=== PATIENT | female | born 1955 | race American Indian/Alaskan Native ===

== ENCOUNTER 2021-01-30 14:42 | Emergency (ER) | payer OTHER, SELFPAY ==
--- NOTE | ~2021-01-30 | XR_ITS ---
EXAMINATION: RIGHT KNEE AND RIGHT ANKLE. CLINICAL INFORMATION: Status post fall. Pain. COMPARISON: None TECHNIQUE: Right knee 4 views. Right ankle 3 views. FINDINGS: Right knee: There is loss of tricompartment joint space with periarticular spurring there is a small suprapatellar joint effusion. No loose bodies seen. No bony erosive changes. The soft tissues are normal. Right ankle: There is bimalleolar soft tissue swelling. There is a nondisplaced distal fibular soft tissue swelling. There is mild osteopenia. The ankle mortise and subtalar joints are normal. There is a small calcaneal heel enthesophyte. XR/XR ankle RT min 3V IMPRESSION: Small calcaneal heel enthesophyte with bimalleolar soft tissue swelling. No visible acute fracture or dislocation. There is mild suprapatellar joint effusion with degenerative changes in the tricompartments of right knee.
--- NOTE | ~2021-01-30 | XR_ITS ---
EXAMINATION: RIGHT KNEE AND RIGHT ANKLE. CLINICAL INFORMATION: Status post fall. Pain. COMPARISON: None TECHNIQUE: Right knee 4 views. Right ankle 3 views. FINDINGS: Right knee: There is loss of tricompartment joint space with periarticular spurring there is a small suprapatellar joint effusion. No loose bodies seen. No bony erosive changes. The soft tissues are normal. Right ankle: There is bimalleolar soft tissue swelling. There is a nondisplaced distal fibular soft tissue swelling. There is mild osteopenia. The ankle mortise and subtalar joints are normal. There is a small calcaneal heel enthesophyte. XR/XR knee RT 3V IMPRESSION: Small calcaneal heel enthesophyte with bimalleolar soft tissue swelling. No visible acute fracture or dislocation. There is mild suprapatellar joint effusion with degenerative changes in the tricompartments of right knee.
[2021-01-30 14:52] VITALS: BP 155/80; BP 160/82; PULSE 78; PULSE 82; RESP 18; TEMP 36.6; O2SAT 98; BMI 45.1
--- NOTE | 2021-01-30 14:58 | ED_ITS ---
HPI - Fall General Chief Complaint: Fall Stated Complaint: R ANKLE PAIN S/P FALL FROM TOW TRUCK Time Seen by Provider: 01/30/21 14:58 Source: EMS Mode of arrival: EMS Limitations: no limitations History of Present Illness HPI Narrative: 65-year-old female with below noted past medical history presenting complaint of right ankle pain and pain to the right knee after she was trying get into a tow truck and lost her footing and fell on to the ankle region. States she always has knee pain and this made it worse. She denies any other injury to the torso or hip or neck or head. MD complaint: fall Onset (ago): minute(s) Fall from: standing Fall witnessed: yes, by bystander Place fall occurred: street Loss of consciousness: none Symptoms prior to fall: none Context: tripped/slipped Severity scale (1-10): 8 Quality: aching Associated symptoms (after fall): denies Related Data Allergies Allergy/AdvReac Type Severity Reaction Status Date / Time Iodinated Contrast Media Allergy Severe ANAPHYLAXIS Unverified 01/22/20 19:30 [IV CONTRAST] iodine [IODINE] Allergy Severe ANAPHYLAXIS Unverified 01/22/20 19:30 shellfish derived Allergy Severe ANAPHYLAXIS Unverified 01/22/20 19:30 [SHELLFISH DERIVED] contrast dye Allergy Unknown Uncoded 10/08/17 00:00 iodine Allergy Unknown Uncoded 10/08/17 00:00 shell fish Allergy Unknown Uncoded 10/08/17 00:00 Review of Systems Review of Systems: Constitutional: No Weight loss, No Fever, No Chills, No Night Sweats, No Fatigue, No Malaise ENT/Mouth: No Hearing loss, No Ear Pain, No Nasal Congestion, No Sinus Pain, No Hoarseness, No sore throat, No Rhinorrhea, No Swallowing Difficulty Eyes: No Eye Pain, No Swelling, No Redness, No Foreign Body, No Discharge, No Vision Changes Cardiovascular: No Chest Pain, No SOB, No Dyspnea on Exertion, No Orthopnea, No Edema, No Palpitations Respiratory: No Cough, No Sputum, No Wheezing, No Smoke Exposure, No Dyspnea Gastrointestinal: No Nausea, No Vomiting, No Diarrhea, No Constipation, No abdominal Pain, No Hematochezia, No Melena Genitourinary: No Dysuria, No Urinary Frequency, No Hematuria, No Urinary Incontinence, No Urgency, No Flank Pain, No Urinary Flow Changes, No Hesitancy Musculoskeletal: No joint pain, No Myalgias, No Joint Swelling, as noted per HPI Skin: No Skin Lesions, No rash Neuro: No Weakness, No Numbness, No Paresthesias, No Loss of Consciousness, No Dizziness, No Headache Psych: No Social Issues Heme/Lymph: No Bruising, No Bleeding,No Lymphadenopathy Endocrine: No Polyuria, No Polydipsia, No Temperature Intolerance PMFSH Social History Social History Advance Directives: No Advance Directives Information Provided: Yes Physical Exam Vital Signs: Vital Signs: Last Vital Signs Temp 98 F 01/30/21 14:52 Pulse 82 01/30/21 14:52 Resp 18 01/30/21 14:52 BP 155/80 H 01/30/21 14:52 Pulse Ox 98 01/30/21 14:52 Body Mass Index 45.1 Const: General: cooperative and healthy appearing; No acute distress or intoxicated appearing Nutritional Appearance: average body habitus Orientation/consciousness: patient oriented x3 HENMT: Head: Yes normal to inspection Ears: hearing grossly normal bilaterally Eyes: General: appearance normal, both eyes and all related structures Visual Pinedo: normal visual pinedo by confrontation Neck: Neck: Yes normal visual inspection, No positive Brudzinski's sign, No positive Kernig's sign and No tender Thyroid: Thyroid normal Chest: Chest palpation & inspection: normal inspection of the chest Resp: Effort & Inspection: normal respiratory effort Auscultation: clear to auscultation bilaterally Cardio: Jugular venous distension: no JVD Rhythm: regular rhythm Heart sounds: S1 normal heart sound present and S2 normal heart sound present GI: Inspection: Yes normal to inspection Percussion: Yes normal to percussion Auscultation: normal bowel sounds : General: Yes no CVA tenderness Back/Spine/Pelvis: Back: no CVA tenderness Skin: General skin exam: no rashes or lesions noted Neuro: General: patient oriented x3 Extrem: General: Yes normal to inspection Ankle/foot/toe images: 1. Slight swelling, tender to palpation over the lateral aspect of the ankle. Also complains of knee pain exam unremarkable. No obvious deformity. Course Course Course Narrative: Mechanical fall resulting in right ankle/right knee injury x- rays done of the right ankle knee shows arthritic changes otherwise no acute osseous injury. Exam consistent with strain type injury. Patient placed in Sotero wrap of the knee and Aircast for the ankle has cane at baseline. Feels comfortable with this. Otherwise neurovascularly intact. Ambulatory with steady gait. Stable for discharge. MDM - Fall Differential Diagnosis Differential diagnosis: Likely dislocation, fracture and compression fracture; Unlikely syncope, concussion with loss of consciousness or concussion without loss of consciousness Medical Records Attestation: I reviewed the patient's medical records. Lab Data Attestation: I reviewed the patient's lab results. Imaging Data Right ankle/right knee: Radiologist's impression: Georgina Pereira??65??F??1955 ? Allergy/Adv: Iodinated Contrast Media, iodine, shellfish derived, [contrast dye], [iodine], [shell fish] (More??) Close ER Physician Documentation 01/30/21 14:58 Ankle X-Ray 01/30/21 14:59 Knee X-Ray 01/30/21 14:59 Launch?Image [place] [address] XRay Report Signed Patient: Georgina Pereira MR#: [id number] : 1955 Acct:[id number] Age/Sex: 65 / F ADM Date: 01/30/21 Loc: HO.ED Attending Dr: Ordering Physician: Tien Penaloza NP Date of Service: 01/30/21 Procedure(s): XR ankle RT min 3V Accession Number(s): [id number] cc: Tien Penaloza NP~ EXAMINATION: RIGHT KNEE AND RIGHT ANKLE. CLINICAL INFORMATION: Status post fall. Pain.? COMPARISON: None? TECHNIQUE: Right knee 4 views. Right ankle 3 views.? FINDINGS: Right knee: There is loss of tricompartment joint space with periarticular spurring there is a small suprapatellar joint effusion. No loose bodies seen. No bony erosive changes. The soft tissues are normal. Right ankle: There is bimalleolar soft tissue swelling. There is a nondisplaced distal fibular soft tissue swelling. There is mild osteopenia. The ankle mortise and subtalar joints are normal. There is a small calcaneal heel enthesophyte.? XR/XR ankle RT min 3V IMPRESSION: Small calcaneal heel enthesophyte with bimalleolar soft tissue swelling. No visible acute fracture or dislocation. ? There is mild suprapatellar joint effusion with degenerative changes in the tricompartments of right knee. Dictated By: Sergo Cheek MD Signed By: <Electronically signed by Sergo Cheek MD in OV> 01/30/21 1530 DD/ 1459 TD/TT:? V[place] [facility] [place] Discharge Clinical Impression: Ankle sprain, Contusion of knee Patient Disposition: Home, Self-Care Instructions: Ankle Sprain (ED), Ankle Stirrup Splint (ED), Knee Pain (ED) Additional Instructions: X-ray did not show any evidence of acute fracture You suffered a strain of the ankle for this she will need to rest, ice, compress, elevate Use her supportive devices as provided Tylenol [id number] as needed Return if any concerns or worsening symptoms Otherwise follow up with her primary care doctor as discussed Thank you Referrals: Ileana Sr MD [Primary Care Provider] - 1 week
--- NOTE | 2021-01-30 16:15 | PC.NURSE ---
Sotero wrap, and air cast applied. Patient ambulated with cane and able to stand pivot but not able to ambulate far beause of pain. Patient states this is baseline and uses a scooter at home and feels safe going home.
== END 2021-01-30 22:35 | disposition home or self-care (01) ==
PROVIDERS: Emergency Provider Emergency Medicine; PCP Family Medicine
DX: S93.401A Sprain of unspecified ligament of right ankle, initial encounter (principal); S80.01XA Contusion of right knee, initial encounter; M25.561 Pain in right knee; Y30.XXXA Falling, jumping or pushed from a high place, undetermined intent, initial encounter; Y93.9 Activity, unspecified; Y92.9 Unspecified place or not applicable; Y99.9 Unspecified external cause status
CPT/HCPCS: 29515; 73562; 73610; 99281; 99283

== ENCOUNTER 2023-04-06 08:24 | Emergency (ER) | payer OTHER, SELFPAY ==
--- NOTE | ~2023-04-06 | MR_ITS ---
EXAMINATION: MR BRAIN WITHOUT AND WITH CONTRAST CLINICAL INFORMATION: headache abnormal head ct dizziness COMPARISON: Same day CT head TECHNIQUE: Multiplanar, multisequence MRI of the brain was obtained without administration of intravenous contrast. Please note that this examination was originally ordered as an MRI brain with and without contrast however contrast was not administered. FINDINGS: Ill-defined heterogeneous T2/FLAIR hyperintensity involving the posterior left temporal lobe with corresponding susceptibility artifact. Otherwise, no acute infarct. Few scattered and confluent periventricular white matter T2/FLAIR hyperintensities, nonspecific however commonly seen with small vessel ischemic disease. Diffuse prominence of the sulci with associated ex vacuo dilation of the ventricles compatible with global cerebral atrophy. No midline shift or hydrocephalus. No acute extra-axial fluid collections. The osseous structures are unremarkable. Partially empty and enlarged sella. The pineal gland and remaining midline structures are unremarkable. No orbital pathology. The paranasal sinuses and mastoid air cells are clear. MR/MR head/brain wo/w con IMPRESSION: Please note that contrast was not administered. Within these limitations, -Ill-defined heterogeneous T2/FLAIR hyperintensity involving the posterior left temporal lobe with corresponding susceptibility artifact, indeterminate. Differential considerations include intracranial hemorrhage versus hemorrhagic brain neoplasm. Repeat examination with intravenous contrast administration. -Partially empty and enlarged sella.
--- NOTE | ~2023-04-06 | CT_ITS ---
EXAMINATION: CT HEAD WITHOUT CONTRAST CLINICAL INFORMATION: 67-year-old female with headache COMPARISON: 01/23/2020 TECHNIQUE: Contiguous axial imaging was performed from the skull base to vertex without intravenous administration of contrast. This CT examination was performed using dose optimization techniques as appropriate, variously including the following: *Automated exposure control *Adjustment of mA and/or kV according to patient size (this includes techniques or standardized protocols for targeted exams where dose is matched to indication/reason for exam; i.e. extremities or head) *Use of iterative reconstruction technique DLP: 657 mGy-cm FINDINGS: When compared to the previous examination there is new area of low attenuation in the parenchyma of the left posterior parietal lobe without mass effect or midline shift. Ventricles and sulci unremarkable. There is no intracranial hemorrhage. The rest of carter-white matter differentiation is preserved. There is no skull skull fractures. Paranasal sinuses are well aerated. There is no evidence of volume loss. CT/CT head/brain wo IV con IMPRESSION: New since previous examination. Low attenuation area in the posterior aspect of left parietal lobe follow-up by IV enhanced CT scan or MRI
--- NOTE | 2023-04-06 08:31 | ED_ITS ---
HPI - General Adult General Chief complaint: Headache Stated complaint: HEAD PAIN X 4 DAYS Time Seen by Provider: 04/06/23 08:47 Source: patient Mode of arrival: ambulatory Limitations: no limitations History of Present Illness HPI narrative: 67-year-old female history of obesity, hypertension, CVA presenting to the emergency department for evaluation of headache, visuall changes, dizziness x4 days patient reports headache is diffuse in nature worse on the right w/ a/c scalp tenderness and she has been dizzy described as room spinning for the past 4 days also worse when looking right, describes worsening vision . Patient thinks that this is caused by her prescription for her glasses which does not seem to be working anymore. She denies emolliating factors. Denies fall or head trauma. 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 Denies fevers, chills, neck pain, chest pain, shortness of breath, nausea, vomiting, abdominal pain. Related Data Allergies Allergy/AdvReac Type Severity Reaction Status Date / Time Iodinated Contrast Media Allergy Severe ANAPHYLAXIS Unverified 01/22/20 19:30 [IV CONTRAST] iodine [IODINE] Allergy Severe ANAPHYLAXIS Unverified 01/22/20 19:30 shellfish derived Allergy Severe ANAPHYLAXIS Unverified 01/22/20 19:30 [SHELLFISH DERIVED] contrast dye Allergy Unknown Uncoded 10/08/17 00:00 iodine Allergy Unknown Uncoded 10/08/17 00:00 shell fish Allergy Unknown Uncoded 10/08/17 00:00 Review of Systems 2 Review of Systems: Constitutional : No Weight loss, No Fever, No Chills, No Fatigue, No Malaise ENT/Mouth : No sore throat, No Rhinorrhea Eyes: No Eye Pain, No Swelling, No Redness Cardiovascular : No Chest Pain, No SOB, No Dyspnea on Exertion, No Orthopnea, No Edema, No Palpitations Respiratory : No Cough, No Sputum, No Wheezing Gastrointestinal : No Nausea, No Vomiting, No Diarrhea, No Constipation, No abdominal Pain, No Hematochezia, No Melena Genitourinary : No Dysuria, No Urinary Frequency, No Hematuria, Musculoskeletal : No joint pain, No Myalgias, No Joint Swelling Skin : No Skin Lesions, No rash Neuro : No Weakness, No Numbness, No Dizziness, + Headache Psych : No Anxiety/Panic, No Depression All other systems reviewed and are negative Yes all other systems are reviewed and are negative [facility] Past Medical History Attestation statement: The following information was validated with the patient. Source: old records reviewed and nursing notes reviewed Social History Social History Advance Directives: No Advance Directives Information Provided: Yes Physical Exam ED Vital Signs: Vital Signs - 24 hr 04/06/23 08:34 Temperature 98.1 F Pulse Rate 93 Respiratory Rate 18 Blood Pressure 164/74 H Pulse Oximetry 98 Oxygen Delivery Method Room Air BMI result Body Mass Index 40.1 vss Appearance: Alert.? Oriented X3.? No acute distress.? Head: Normocephalic, atraumatic, no step-offs or deformities Eyes: Pupils equal, round and reactive to light.? Neck: Normal inspection.? Neck supple.? No meningeal signs CVS: Normal heart rate and rhythm.? Pulses normal.? Respiratory: No respiratory distress.? Breath sounds normal.? Abdomen: Soft and nontender.? Skin: Skin warm and dry.? Normal skin color.? Normal skin turgor.? Extremities: No lower extremity edema.? No calf ttp. 5/5 strength to bilateral upper and lower extremities Neuro: Oriented X 3.? No motor deficit.? No sensory deficit. CN 2-12 intact . Normal dcpebn-po-kesl, btgx-ey-nedl. Negative Romberg and pronator drift Course Reevaluation(s) Reevaluation #1: Patient's CBC around her baseline. No acute finding. Chemistry unremarkable. CT head with low attenuation in the posterior aspect of left parietal lobe, follow-up with IV enhanced CT or MRI, patient has anaphylaxis reaction to IV contrast, I discussed this case in depth with my attending who recommends doing an MRI to rule out mass which could be causing headache, not resolving with pain meds. Time: 13:35 Reevaluation #2: Spoke to Dr. Adia Leary who tells me this finding on CT most likely old infarct which could explain her progressively worsening vision. Reports no need for emergent head MR. My attending recommends admission for ? stroke. Will speak to the hospitalist. Time: 14:15 Reevaluation #3: Spoke to neurology who recommends admission with MRI routine tomorrow. They will follow while in the hospital. Time: 15:15 Additional Reevaluation(s): MRI will take patient. I went in and had a long conversation with patient she was able to further elaborate on her symptoms she ripped reports a pressure to the right side of her head, with associated dizziness room spinning which is worse when patient turns to her right she reports I think I had a stroke 4 days ago , but does not really elaborate on to why she thinks this. No associated weakness, dysarthria, dysphagia, facial asymmetry. Patient wanted to leave however she states something isn't right.Patient to be admitted at this time for further eval due to reported sx and changes on imaging Medications Administered Discontinued Medications Generic Name Dose Route Start Last Admin Trade Name Freq PRN Reason Stop Dose Admin Morphine Sulfate 4 mg 04/06/23 10:32 04/06/23 12:06 Morphine Sulfate 4 Mg/Ml Cartridge IVPUSH 04/06/23 10:33 Not Given ONCE ONE Protocol Medical Decision Making Medical Decision Making [facility] Narrative: [address]32 59-year-old female presents with diffuse headache, worsening vision and dizziness for the past 4 days. Physical examination benign. NIHSS - 0 History and physical exam concerning for typical migraine versus headache. Unlikely stroke, posterior stroke, intracranial hemorrhage, meningitis, encephalitis. Unlikely temporal arteritis. Plan at this time labs, imaging. Differential Diagnosis Differential Diagnoses: The differential diagnosis associated with the presentation includes History and physical exam concerning for typical migraine versus headache. Unlikely stroke, posterior stroke, intracranial hemorrhage, meningitis, encephalitis. Unlikely temporal arteritis. Admission/Observation Consideration of admission/observation: Escalation of care including admission/observation considered Unlikely Consult Healthcare Provider Management of the patient was discussed with: Technical Laboratory Asst Lab Data [facility] Lab Attestation statement: I reviewed the patient's lab results. 04/06/23 09:18 04/06/23 10:02 Labs: Lab Results 04/06/23 04/06/23 Range/Units 09:18 10:02 WBC 9.3 (4.8-10.8) X10*3/uL RBC 5.38 (4.20-5.50) X10*6/uL Hgb 11.8 L (12.0-16.0) g/dl Hct 37.9 (37.0-47.0) % MCV 70.4 L (80.0-98.0) fL MCH 21.9 L (27.0-33.0) pg MCHC 31.1 (31.0-35.0) g/dl RDW 16.5 H (11.0-16.0) % Plt Count 304 (160-400) X10*3/uL MPV 9.9 (9.4-12.3) fL Immature Gran % (Auto) 0.6 H (0.0-0.4) % Neut % (Auto) 75.9 H (45-73) % Lymph % (Auto) 14.6 L (20-40) % [place] % (Auto) 7.2 (2-11) % Eos % (Auto) 1.2 (0-4) % Baso % (Auto) 0.5 (0-2) % Lymph # (Auto) 1.4 (1.2-4.9) X10*3/uL [place] # (Auto) 0.7 (0.1-1.2) X10*3/uL Eos # (Auto) 0.1 (0.0-0.4) X10*3/uL Baso # (Auto) 0.1 (0.0-0.2) X10*3/uL Abs Immat Gran (auto) 0.06 H (0.00-0.03) X10*3/uL Absolute Neuts (auto) 7.0 (2.0-8.3) x10*3/uL Absolute Nucleated RBC 0.000 (0.0-0.012) X10*3/uL Nucleated RBC % (auto) 0.0 (0.0-0.2) /100WBC Sodium 143 (135-145) mmol/L Potassium 4.0 (3.3-5.1) mmol/L Chloride 107 (96-108) mmol/L Carbon Dioxide 28 (22-29) mmol/L Anion Gap 12 (12-20) BUN 13 (9-16) mg/dL Creatinine 0.59 (0.5-1.4) mg/dL Estim Creat Clear Calc 116.2 Estimated GFR > 60 Random Glucose 151 H (60-115) mg/dL Calcium 9.5 (8.4-10.2) mg/dL Total Bilirubin 0.4 (0.0-1.0) mg/dL AST 22 (5-31) U/L ALT 20 (0-31) U/L Alkaline Phosphatase 154 H (39-117) U/L Total Protein 7.4 (6.5-8.0) g/dL Albumin 3.7 (3.5-5.0) g/dL Independent Interpretation I performed an independent interpretation of an: CT Scan (CT/CT head/brain wo IV con IMPRESSION: New since previous examination. Low attenuation area in the posterior aspect of left parietal lobe follow-up by IV enhanced CT scan or MRI) Radiology Impression Discussion of test interpretation with radiology: I have reviewed the radiologist's reading. External Record Review External record reviewed: Inpatient record, Office record, Outpatient record, Prior outpatient labs, Prior outpatient radiology, Primary care record and Outside ED record Critical Care Time Critical Care Time Critical Care Time: Yes Total Critical Care Time: 45 Attestation: I attest to this time spent taking care of the patient, obtaining history, physical, reviewing labs, imaging, speaking to my attending Discharge Plan Discharge Clinical Impression: Headache, Visual changes Patient Disposition: Still a Patient
[2023-04-06 08:34] VITALS: BP 164/74; PULSE 93; RESP 18; TEMP 36.7; O2SAT 98; BMI 40.1
[2023-04-06 09:31] LABS: MANUAL DIFF FLAG NO
[2023-04-06 09:33] LABS: Basophils Absolute Auto 0.1 X10*3/uL (0.0-0.2); Basophils Percent Auto 0.5 % (0-2); Eosinophils Absolute Auto 0.1 X10*3/uL (0.0-0.4); Eosinophils Percent Auto 1.2 % (0-4); Hematocrit 37.9 % (37.0-47.0); Hemoglobin 11.8 g/dl (12.0-16.0); Imm Gran Abs Auto 0.06 X10*3/uL (0.00-0.03); Imm Gran Pct Auto 0.6 % (0.0-0.4); Lymphocytes Absolute Auto 1.4 X10*3/uL (1.2-4.9); Lymphocytes Percent Auto 14.6 % (20-40); Mean Corpuscular HGB Conc 31.1 g/dl (31.0-35.0); Mean Corpuscular Hemoglobin 21.9 pg (27.0-33.0); Mean Corpuscular Volume 70.4 fL (80.0-98.0); Mean Platelet Volume 9.9 fL (9.4-12.3); Monocytes Absolute Auto 0.7 X10*3/uL (0.1-1.2); Monocytes Percent Auto 7.2 % (2-11); Neutrophils Percent Auto 75.9 % (45-73); Platelet Count 304 X10*3/uL (160-400); Red Blood Count 5.38 X10*6/uL (4.20-5.50); Red Cell Distribution Width 16.5 % (11.0-16.0); White Blood Count 9.3 X10*3/uL (4.8-10.8)
[2023-04-06 10:25] LABS: Alanine Aminotransferase 20 U/L (0-31); Albumin Level 3.7 g/dL (3.5-5.0); Alkaline Phosphatase 154 U/L (39-117); Anion Gap 12 (12-20); Aspartate Amino Transferase 22 U/L (5-31); Bilirubin Total 0.4 mg/dL (0.0-1.0); Blood Urea Nitrogen 13 mg/dL (9-16); Calcium 9.5 mg/dL (8.4-10.2); Carbon Dioxide 28 mmol/L (22-29); Chloride 107 mmol/L (96-108); Creatinine Clr Calc Pharmacy 116.2; Estimated Glomerular Filt Rate > 60; Glucose Random 151 mg/dL (60-115); Sodium 143 mmol/L (135-145); Total Protein 7.4 g/dL (6.5-8.0)
--- NOTE | 2023-04-06 11:05 | PC.NURSE ---
patient tearful in room after speaking with provider about CT scan results. unsure if she will be able to tolerate the MRI requesting to be transferred somewhere with a different MRI machine. very anxious in room, asked this RN to wait on the IV until she speaks with her sister. does not want the morphine that was ordered for her.
--- NOTE | 2023-04-06 15:44 | MHC.EDTECH ---
Neuro/Dr. Mcclure @ [phone] and called back at [phone]
--- NOTE | 2023-04-06 16:03 | PC.NURSE ---
patient requesting to leave and come back sunday for mri. provider in to speak with patient about waiting for mri and admission. patient agreed to go to mri but is requesting to see mri machine and potentially be medicated with ativan immediately prior to scan.
--- NOTE | 2023-04-06 16:49 | PC.NURSE ---
MRI was completed, ativan was pulled and brought down for patient which she refused, was able to complete scan without.
[2023-04-06 16:50] VITALS: BP 164/63; PULSE 88; RESP 16; O2SAT 97
--- NOTE | 2023-04-06 17:22 | PHA.MEDREC ---
Pharmacy Consult ? Medication Reconciliation Pharmacy has completed the medication reconciliation.
--- NOTE | 2023-04-06 17:36 | P.HPHOSP_ITS ---
History of Present Illness Date of Service: 04/06/23 Attending physician on admission: Donavon Veliz Chief Complaint: Persistent headache x4 days Pt is a 67-year-old female with a PMH significant for?HTN, CVA, who presents to the ED with?headache, In the ED pt was afebrile with heart rate as high as 93, slightly hypertensive up to 164/74, otherwise vital stable. Labs were largely unremarkable. No leukocytosis. Stable H&H. Electrolytes WNL. Renal function baseline. CT?of head and brain found area of low attenuation in the posterior aspect of left parietal lobe, which radiology thinks might flecked an old infarct. EKG demonstrated Pt was treated with Pt will be admitted to the hospital [facility] Social History Advance Directives: No Advance Directives Information Provided: Yes Meds Allergies Allergy/AdvReac Type Severity Reaction Status Date / Time Iodinated Contrast Media Allergy Severe ANAPHYLAXIS Unverified 01/22/20 19:30 [IV CONTRAST] iodine [IODINE] Allergy Severe ANAPHYLAXIS Unverified 01/22/20 19:30 shellfish derived Allergy Severe ANAPHYLAXIS Unverified 01/22/20 19:30 [SHELLFISH DERIVED] contrast dye Allergy Unknown Uncoded 10/08/17 00:00 iodine Allergy Unknown Uncoded 10/08/17 00:00 shell fish Allergy Unknown Uncoded 10/08/17 00:00 Home Medications Medication Instructions Recorded Confirmed Last Taken Type albuterol sulfate 90 mcg/actuation 2 puff inhalation QID PRN dyspnea 04/06/23 04/06/23 Unknown History aerosol inhaler amlodipine 5 mg tablet 5 mg PO QAM 04/06/23 04/06/23 Unknown History cholecalciferol (vitamin D3) 50 50 mcg PO DAILY 04/06/23 04/06/23 Unknown History mcg (2,000 unit) capsule (Vitamin D3) cyclobenzaprine 10 mg tablet 10 mg PO TID PRN muscle spasm 04/06/23 04/06/23 Unknown History dulaglutide 0.75 mg/0.5 mL 0.75 mg subcut QWEEK 04/06/23 04/06/23 Unknown History subcutaneous pen injector (Trulicity) ibuprofen 800 mg tablet 800 mg PO BID 04/06/23 04/06/23 Unknown History metformin 500 mg tablet,extended 1,500 mg PO QPM 04/06/23 04/06/23 Unknown History release 24 hr Physical Exam 2 Vital Signs and Narrative: Vital Signs: Last Vital Signs Temp 98.1 F 04/06/23 08:34 Pulse 88 04/06/23 16:50 Resp 16 04/06/23 16:50 BP 164/63 H 04/06/23 16:50 Pulse Ox 97 04/06/23 16:50 O2 Del Method Room Air 04/06/23 16:50 BMI result Body Mass Index 40.1 Results Labs 04/06/23 09:18 04/06/23 10:02 Labs: Laboratory Results - last 24 hr 04/06/23 04/06/23 09:18 10:02 MCV 70.4 L MCH 21.9 L MCHC 31.1 RDW 16.5 H Plt Count 304 MPV 9.9 Immature Gran % (Auto) 0.6 H Neut % (Auto) 75.9 H Lymph % (Auto) 14.6 L [place] % (Auto) 7.2 Eos % (Auto) 1.2 Baso % (Auto) 0.5 Lymph # (Auto) 1.4 [place] # (Auto) 0.7 Eos # (Auto) 0.1 Baso # (Auto) 0.1 Abs Immat Gran (auto) 0.06 H Absolute Neuts (auto) 7.0 Absolute Nucleated RBC 0.000 Nucleated RBC % (auto) 0.0 Anion Gap 12 Estim Creat Clear Calc 116.2 Estimated GFR > 60 Random Glucose 151 H Calcium 9.5 Total Bilirubin 0.4 AST 22 ALT 20 Alkaline Phosphatase 154 H Total Protein 7.4 Albumin 3.7 Imaging Radiologist's Impressions: Impressions Head CT 04/06/23 09:00 IMPRESSION: New since previous examination. Low attenuation area in the posterior aspect of left parietal lobe follow-up by IV enhanced CT scan or MRI Brain MRI 04/06/23 16:28 IMPRESSION: Please note that contrast was not administered. Within these limitations, -Ill-defined heterogeneous T2/FLAIR hyperintensity involving the posterior left temporal lobe with corresponding susceptibility artifact, indeterminate. Differential considerations include intracranial hemorrhage versus hemorrhagic brain neoplasm. Repeat examination with intravenous contrast administration. -Partially empty and enlarged sella.
[2023-04-06] MEDS: Ibuprofen 800 MG TABLET PO (18:55)
[2023-04-06 19:14] VITALS: BP 157/68; PULSE 84; RESP 20; TEMP 36.7; O2SAT 96
== END 2023-04-06 20:15 | disposition home or self-care (01) ==
PROVIDERS: Physician Assistant; Emergency Provider Emergency Medicine Emergency Medical Services; PCP Family Medicine
DX: R51.9 Headache, unspecified (principal); R42 Dizziness and giddiness; H54.3 Unqualified visual loss, both eyes; Z79.899 Other long term (current) drug therapy
CPT/HCPCS: 36415; 70450; 70553; 80053; 85025; 96374; 96375; 99284; 99285